=== PATIENT | male | born 1960 | race Caucasian/White ===

== ENCOUNTER 2021-09-09 06:08 | Day surgery (SDC) | payer BC ==
[2021-09-08 09:02] VITALS: BMI 33.0
[2021-09-09] MEDS: LACTATED RINGERS 1,000 ML IV SCH (06:50)
[2021-09-09 06:53] LABS: Glucose,Whole Blood 164 mg/dL (75-99)
[2021-09-09] MEDS ORDERED: PROPOFOL 10 MG/ML 20 ML VIAL IV ONE (08:04)
[2021-09-09 08:17] VITALS: BP 149/89; PULSE 54; RESP 16; TEMP 97.3
--- NOTE | 2021-09-09 08:38 | P.PCN ---
Date of Procedure: 09/09/21 Procedure(s) Performed: BRIEF HISTORY: Patient is a 60-year-old pleasant white male scheduled for an elective colonoscopy as a part of follow-up of large rectal polyp noted on a colonoscopy a month ago. Biopsies revealed adenoma. PROCEDURE PERFORMED: Sigmoidoscopy with snare polypectomy and argon plasma coagulation PREOPERATIVE DIAGNOSIS: Follow-up large rectal polyps noted on recent. IV sedation per Anesthesia. PROCEDURE: After informed consent was obtained, the patient, was brought into the endoscopy unit. IV sedation was administered by Anesthesia under continuous monitoring. Digital rectal examination was normal. Initially the Olympus CF-160 flexible video colonoscope was then inserted in the rectum, gradually advanced into the sigmoid colon. Prep was fair. Mucosa of the sigmoid colon appeared normal. In the mid rectum there was a 1.5 cm sessile flat polyp that was partially removed by snare polypectomy followed by hot biopsy and argon plasma coagulation. In the distal rectum, just proximal to the dentate line there were 2 polyps adjacent to each other. They measured 5 mm and 1 cm in size both of which were removed by snare polypectomy and complete polypectomy accomplished.. Retroflexion was performed in the rectum and no lesions were seen. The patient tolerated the procedure well. IMPRESSION: 1.5 cmi flat polyp in the mid rectum status post piecemeal snare polypectomy followed by hot biopsy and argon plasma coagulation 1 cm residual distal rectal polyp just proximal to the dentate line status post snare polypectomy 5 mm distal rectal polyp status post polypectomy RECOMMENDATIONS: Findings of this examination were discussed with the patientas well as his family. He was advised to follow with the biopsy results. Reason the biopsy results will plan a repeat flexible sigmoidoscope in 6 months].
== END 2021-09-09 09:25 | disposition home or self-care (01) ==
LOC: ORWHC2ENDO 06:08
PROVIDERS: ATTEND Internal Medicine Gastroenterology
DX: Z12.11 Encounter for screening for malignant neoplasm of colon (principal); D12.8 Benign neoplasm of rectum; G47.33 Obstructive sleep apnea (adult) (pediatric); E11.9 Type 2 diabetes mellitus without complications; E66.9 Obesity, unspecified; Z68.32 Body mass index [BMI] 32.0-32.9, adult
CPT/HCPCS: 88305; 45338; J2704; 45331; 45334

== ENCOUNTER 2022-03-24 10:02 | Day surgery (SDC) | payer BC ==
[2022-03-22 17:23] VITALS: BMI 30.9
[~2022-03-24 10:02] MED LIST: LACTATED RINGERS 1,000 ML IV SCH
[2022-03-24 10:48] VITALS: TEMP 97.7
[2022-03-24 10:58] LABS: Glucose,Whole Blood 101 mg/dL (75-99)
[2022-03-24] MEDS ORDERED: PROPOFOL 10 MG/ML 20 ML VIAL IV ONE (11:31)
--- NOTE | 2022-03-24 11:52 | P.PCN ---
Date of Procedure: 03/24/22 Procedure(s) Performed: BRIEF HISTORY: Patient is a 61-year-old pleasant white male scheduled for an elective colonoscopy as a part of follow-up of large rectal polyps with high- grade dysplasia noted on a colonoscopy in August 2021. PROCEDURE PERFORMED: Flexible sigmoidoscopy with snare polypectomy. PREOPERATIVE DIAGNOSIS: Follow-up rectal polyps with high-grade dysplasia. IV sedation per Anesthesia. PROCEDURE: After informed consent was obtained, the patient, was brought into the endoscopy unit. IV sedation was administered by Anesthesia under continuous monitoring. Digital rectal examination was normal. Initially the Olympus CF-160 flexible video colonoscope was then inserted in the rectum, gradually advanced into the splenic flexure. Careful examination was performed. Prep was excellent. Mucosa of the colon descending colon and sigmoid; appeared normal. In the distal rectum just proximal to the dentate line there was a 1 cm and 5 mm sessile polyps removed by snare polypectomy. There was no residual polyp noted in the mid rectum. Retroflexed was performed in the rectum and no lesions were noted. Patient tolerated the procedure well. Impression: 1 cm flat and 5 mm sessile descending colon and sigmoid colon appeared normal. No residual polyp noted in the mid rectal polyp Recommendations: Findings of this examination were discussed with the patient .as well as his family. He was advised to follow with the biopsy results. He was advised to have a repeat colonoscopy in 3 years.
[2022-03-24 11:55] VITALS: RESP 16
[2022-03-24 12:15] VITALS: BP 108/44; PULSE 68
== END 2022-03-24 12:29 | disposition home or self-care (01) ==
LOC: ORWHC2ENDO 10:02
PROVIDERS: ATTEND Internal Medicine Gastroenterology
DX: Z12.11 Encounter for screening for malignant neoplasm of colon (principal); D12.8 Benign neoplasm of rectum; Z86.010 Personal history of colon polyps; I10 Essential (primary) hypertension; E78.5 Hyperlipidemia, unspecified; G47.33 Obstructive sleep apnea (adult) (pediatric); E11.9 Type 2 diabetes mellitus without complications; Z79.84 Long term (current) use of oral hypoglycemic drugs; Z79.899 Other long term (current) drug therapy; Z90.89 Acquired absence of other organs; Z98.890 Other specified postprocedural states
CPT/HCPCS: 88305; 45338; J2704

== ENCOUNTER 2023-02-12 09:37 | Emergency (ER) | payer BC ==
[2023-02-12 09:49] VITALS: TEMP 98.2
--- NOTE | 2023-02-12 09:58 | ED ---
General Adult HPI - General Chief complaint: Arrhythmia/Palpitations Stated complaint: AFIB Time Seen by Provider: 02/12/23 09:50 Source: patient, RN notes reviewed Mode of arrival: ambulatory Limitations: no limitations - History of Present Illness Initial comments: Patient is a pleasant 62-year-old male presenting to the emergency department with concern for new onset A. fib. Patient was at orthopedics preparing for shoulder surgery. Patient was placed on a monitor and found to be irregular. Patient was warned he could have atrial fibrillation and advised come to the emergency department. Patient has symptom-free and has no complaints. No chest pain. No palpitations. No dyspnea. No history of similar problems previously. - Related Data Home Medications Medication Instructions Recorded Confirmed Fenofibrate,Micronized 134 mg PO HS 09/08/21 02/12/23 [Fenofibrate] lisinopriL [Prinivil] 10 mg PO DAILY 09/08/21 02/12/23 metFORMIN HCL [Glucophage] 1,000 mg PO BID 09/08/21 02/12/23 Semaglutide [Ozempic] 1 mg SQ BENAVIDES 03/22/22 02/12/23 Previous Rx's Medication Instructions Recorded Apixaban [Eliquis] 5 mg PO BID #60 tab 02/12/23 Allergies Allergy/AdvReac Type Severity Reaction Status Date / Time No Known Allergies Allergy Verified 02/12/23 10:58 Review of Systems ROS Statement: Those systems with pertinent positive or pertinent negative responses have been documented in the HPI. ROS Other: All systems not noted in ROS Statement are negative. Constitutional: Denies: fever Eyes: Denies: eye pain ENT: Denies: ear pain Respiratory: Denies: cough, dyspnea Cardiovascular: Denies: chest pain, palpitations Endocrine: Denies: fatigue Gastrointestinal: Denies: abdominal pain Musculoskeletal: Denies: back pain Past Medical History Past Medical History: Cancer, Diabetes Mellitus, Hyperlipidemia, Hypertension, Sleep Apnea/CPAP/BIPAP Additional Past Medical History / Comment(s): HX BASAL CELL SKIN CANCER, uses CPAP, colon polyps, hx. flat colon polyp History of Any Multi-Drug Resistant Organisms: None Reported Past Surgical History: Adenoidectomy, Hernia Repair, Tonsillectomy Additional Past Surgical History / Comment(s): LT SHOULDER BICEP TENDON REPAIR. COLONOSCOPY, sigmoidoscopy in . LIPOMAS REMOVED FROM NECK AND TORSO Past Anesthesia/Blood Transfusion Reactions: No Reported Reaction Past Psychological History: No Psychological Hx Reported Smoking Status: Never smoker Past Alcohol Use History: Occasional Past Drug Use History: None Reported - Past Family History Mother Family Medical History: No Reported History General Exam Limitations: no limitations General appearance: alert, in no apparent distress Head exam: Present: normocephalic Eye exam: Present: normal appearance Neck exam: Present: normal inspection Respiratory exam: Present: normal lung sounds bilaterally Cardiovascular Exam: Present: irregular rhythm, normal heart sounds Expanded Peripheral pulses: 2+: Radial (R), Radial (L) GI/Abdominal exam: Present: soft. Absent: tenderness Extremities exam: Present: normal inspection. Absent: pedal edema, calf tenderness Neurological exam: Present: alert Psychiatric exam: Present: normal affect, normal mood Skin exam: Present: normal color Course Vital Signs 02/12/23 02/12/23 02/12/23 09:47 11:00 12:06 Temperature 98.2 F Pulse Rate 85 83 84 Respiratory 18 20 18 Rate Blood Pressure 130/89 119/99 119/99 O2 Sat by Pulse 99 97 98 Oximetry EKG Findings - EKG Results: EKG: interpreted by MAKENZIED (Left axis. Normal QRS. No acute ST change.) EKG shows: atrial fibrillation Medical Decision Making - Medical Decision Making Was pt. sent in by a medical professional or institution ([facility], MESSENGER OFF[facility], urgent care, hospital, or alf...) When possible be specific @ -Patient was sent in by surgery Center Did you speak to anyone other than the patient for history (EMS, parent, family, police, friend...)? What history was obtained from this source @ -No Did you review nursing and triage notes (agree or disagree)? Why? @ -I reviewed and agree with nursing and triage notes Were old charts reviewed (outside hosp., previous admission, EMS record, old EKG, old radiological studies, urgent care reports/EKG's, alf records)? Report findings @ -No old charts were reviewed Differential Diagnosis (chest pain, altered mental status, abdominal pain women, abdominal pain men, vaginal bleeding, weakness, fever, dyspnea, syncope, headache, dizziness, GI bleed, back pain, seizure, CVA, palpatations, mental health)? @ -not applicable EKG interpreted by me (3pts min.). @ -As above X-rays interpreted by me (1pt min.). @ -Chest x-ray shows no acute process CT interpreted by me (1pt min.). @ -None done U/S interpreted by me (1pt. min.). @ -None done What testing was considered but not performed or refused? (CT, X-rays, U/S, labs)? Why? @ -None What meds were considered but not given or refused? Why? @ -None Did you discuss the management of the patient with other professionals (kyle donahue i.e. , PA, MESSENGER OFFICE, lab, RT, psych nurse, social science instructor, supervisor rod placing, teacher, emergency communications officer, rehabilitation case coordinator)? Give summary @ -Case was discussed with Dr. truong who feels patient can be safely discharged with anticoagulant, liquids 5 mg twice a day. Was smoking cessation discussed for >3mins.? @ -No Was critical care preformed (if so, how long)? @ -No Were there social determinants of health that impacted care today? How? (Homelessness, low income, unemployed, alcoholism, drug addiction, transportation, low edu. Level, literacy, decrease access to med. care, senior living, rehab)? @ -No Was there de-escalation of care discussed even if they declined (Discuss DNR or withdrawal of care, Hospice)? DNR status @ -No What co-morbidities impacted this encounter? (DM, HTN, Smoking, COPD, CAD, Cancer, CVA, ARF, Chemo, Hep., AIDS, mental health diagnosis, sleep apnea, morbid obesity)? @ -None Was patient admitted / discharged? Hospital course, mention meds given and route, prescriptions, significant lab abnormalities, going to OR and other pertinent info. @ -Patient reevaluated and updated. Heart rate remains stable. Patient will be discharged with anticoagulant with cardiology and primary care follow-up. Patient is made aware he will need echo. Undiagnosed new problem with uncertain prognosis? @ -No Drug Therapy requiring intensive monitoring for toxicity (Heparin, Nitro, Insulin, Cardizem)? @ -No Were any procedures done? @ -No Diagnosis/symptom? @ -New-onset A. fib Acute, or Chronic, or Acute on Chronic? @ -Acute Uncomplicated (without systemic symptoms) or Complicated (systemic symptoms)? @ -default Side effects of treatment? @ -No Exacerbation, Progression, or Severe Exacerbation? @ -No Poses a threat to life or bodily function? How? (Chest pain, [place], [place], pneumonia, PE, COPD, DKA, ARF, appy, cholecystitis, CVA, Diverticulitis, Homicidal, Suicidal, threat to staff... and all critical care pts) @ -No - Lab Data Result diagrams: 02/12/23 10:05 02/12/23 10:05 Lab Results 02/12/23 02/12/23 02/12/23 Range/Units 10:05 10:05 10:05 WBC 9.2 (3.8-10.6) k/uL RBC 5.16 (4.30-5.90) m/uL Hgb 15.1 (13.0-17.5) gm/dL Hct 43.5 (39.0-53.0) % MCV 84.3 (80.0-100.0) fL MCH 29.2 (25.0-35.0) pg MCHC 34.6 (31.0-37.0) g/dL RDW 12.2 (11.5-15.5) % Plt Count 371 (150-450) k/uL MPV 6.9 Neutrophils % 57 % Lymphocytes % 35 % Monocytes % 4 % Eosinophils % 2 % Basophils % 1 % Neutrophils # 5.3 (1.3-7.7) k/uL Lymphocytes # 3.2 (1.0-4.8) k/uL Monocytes # 0.4 (0-1.0) k/uL Eosinophils # 0.2 (0-0.7) k/uL Basophils # 0.1 (0-0.2) k/uL PT 10.7 (9.0-12.0) sec INR 1.0 (<1.2) APTT 22.3 (22.0-30.0) sec Sodium 138 (137-145) mmol/L Potassium 3.8 (3.5-5.1) mmol/L Chloride 108 H (98-107) mmol/L Carbon Dioxide 23 (22-30) mmol/L Anion Gap 7 mmol/L BUN 19 (9-20) mg/dL Creatinine 0.86 (0.66-1.25) mg/dL Est GFR (CKD-EPI)AfAm >90 (>60 ml/min/1.73 sqM) Est GFR (CKD-EPI)NonAf >90 (>60 ml/min/1.73 sqM) Glucose 127 H (74-99) mg/dL Calcium 9.1 (8.4-10.2) mg/dL Magnesium 1.4 L (1.6-2.3) mg/dL Total Bilirubin 0.7 (0.2-1.3) mg/dL AST 21 (17-59) U/L ALT 21 (4-49) U/L Alkaline Phosphatase 35 L (38-126) U/L Troponin I (0.000-0.034) ng/mL Total Protein 6.1 L (6.3-8.2) g/dL Albumin 4.0 (3.5-5.0) g/dL TSH 1.340 (0.465-4.680) mIU/L Free T4 1.04 (0.78-2.19) ng/dL Free T3 pg/mL 3.7 (2.8-5.3) pg/ml 02/12/23 Range/Units 10:05 WBC (3.8-10.6) k/uL RBC (4.30-5.90) m/uL Hgb (13.0-17.5) gm/dL Hct (39.0-53.0) % MCV (80.0-100.0) fL MCH (25.0-35.0) pg MCHC (31.0-37.0) g/dL RDW (11.5-15.5) % Plt Count (150-450) k/uL MPV Neutrophils % % Lymphocytes % % Monocytes % % Eosinophils % % Basophils % % Neutrophils # (1.3-7.7) k/uL Lymphocytes # (1.0-4.8) k/uL Monocytes # (0-1.0) k/uL Eosinophils # (0-0.7) k/uL Basophils # (0-0.2) k/uL PT (9.0-12.0) sec INR (<1.2) APTT (22.0-30.0) sec Sodium (137-145) mmol/L Potassium (3.5-5.1) mmol/L Chloride (98-107) mmol/L Carbon Dioxide (22-30) mmol/L Anion Gap mmol/L BUN (9-20) mg/dL Creatinine (0.66-1.25) mg/dL Est GFR (CKD-EPI)AfAm (>60 ml/min/1.73 sqM) Est GFR (CKD-EPI)NonAf (>60 ml/min/1.73 sqM) Glucose (74-99) mg/dL Calcium (8.4-10.2) mg/dL Magnesium (1.6-2.3) mg/dL Total Bilirubin (0.2-1.3) mg/dL AST (17-59) U/L ALT (4-49) U/L Alkaline Phosphatase (38-126) U/L Troponin I <0.012 (0.000-0.034) ng/mL Total Protein (6.3-8.2) g/dL Albumin (3.5-5.0) g/dL TSH (0.465-4.680) mIU/L Free T4 (0.78-2.19) ng/dL Free T3 pg/mL (2.8-5.3) pg/ml Disposition Clinical Impression: New onset atrial fibrillation Disposition: HOME SELF-CARE Condition: Stable Instructions (If sedation given, give patient instructions): A-fib (Atrial Fibrillation) (ED) Additional Instructions: Please do follow-up with your primary care physician in the next couple days for recheck. You will need echo done. Please also follow-up with cardiology, number provided. Prescription has been sent to pharmacy. Prescriptions: Apixaban [Eliquis] 5 mg PO BID #60 tab Is patient prescribed a controlled substance at d/c from ED?: No Referrals: Patricia Nguyen NPC [REFERRING] - 1-2 days Bree Cole MD [STAFF PHYSICIAN] - 1-2 days Time of Disposition: 13:20
[2023-02-12 10:24] LABS: Basophils # (A) 0.1 k/uL (0-0.2); Basophils % (A) 1 %; Eosinophils # (A) 0.2 k/uL (0-0.7); Eosinophils % (A) 2 %; HCT 43.5 % (39.0-53.0); HGB 15.1 gm/dL (13.0-17.5); Lymphocytes # (A) 3.2 k/uL (1.0-4.8); Lymphocytes % (A) 35 %; MCH 29.2 pg (25.0-35.0); MCHC 34.6 g/dL (31.0-37.0); MCV 84.3 fL (80.0-100.0); Mean Platelet Volume 6.9; Monocytes # (A) 0.4 k/uL (0-1.0); Monocytes % (A) 4 %; Neutrophils # (A) 5.3 k/uL (1.3-7.7); Neutrophils % (A) 57 %; Platelet Count 371 k/uL (150-450); RBC 5.16 m/uL (4.30-5.90); RDW 12.2 % (11.5-15.5); WBC 9.2 k/uL (3.8-10.6)
--- NOTE | 2023-02-12 10:37 | XR ---
EXAMINATION TYPE: XR chest 2V DATE OF EXAM: 02/12/2023 COMPARISON: NONE HISTORY: Dysrhythmia. TECHNIQUE: Frontal and lateral views of the chest are obtained. FINDINGS: There is no focal air space opacity, pleural effusion, or pneumothorax seen. The cardiac silhouette size is within normal limits. The osseous structures are intact. Overlying EKG leads are present. IMPRESSION: No acute cardiopulmonary process.
[2023-02-12 10:39] LABS: Partial Thromboplastin Time 22.3 sec (22.0-30.0); Prothrombin Time 10.7 sec (9.0-12.0)
[2023-02-12 11:44] VITALS: BP 119/99
[2023-02-12 12:01] LABS: ALT 21 U/L (4-49); AST 21 U/L (17-59); African American GFR (CKD) >90 (>60 ml/min/1.73 sqM); Alkaline Phosphatase 35 U/L (38-126); Anion Gap 7 mmol/L; Blood Urea Nitrogen 19 mg/dL (9-20); Calcium 9.1 mg/dL (8.4-10.2); Carbon Dioxide 23 mmol/L (22-30); Chloride 108 mmol/L (98-107); Glucose 127 mg/dL (74-99); Magnesium 1.4 mg/dL (1.6-2.3); Non-African American GFR(CKD) >90 (>60 ml/min/1.73 sqM); Potassium 3.8 mmol/L (3.5-5.1); Sodium 138 mmol/L (137-145); Total Bilirubin 0.7 mg/dL (0.2-1.3); Total Protein 6.1 g/dL (6.3-8.2)
[2023-02-12 12:14] LABS: T4, Free (Free Thyroxine) 1.04 ng/dL (0.78-2.19)
[2023-02-12] MEDS ORDERED: MAGNESIUM OXIDE 400 MG TAB PO STA (12:33)
[2023-02-12] MEDS ORDERED: APIXABAN 5 MG TAB PO STA (13:16)
[2023-02-12 13:34] VITALS: PULSE 83; RESP 17
== END 2023-02-12 13:42 | disposition home or self-care (01) ==
LOC: EC 09:37
DX: I48.91 Unspecified atrial fibrillation (principal); E11.9 Type 2 diabetes mellitus without complications; I10 Essential (primary) hypertension; G47.30 Sleep apnea, unspecified; Z79.84 Long term (current) use of oral hypoglycemic drugs; Z79.899 Other long term (current) drug therapy
CPT/HCPCS: 36415; 71046; 80053; 83735; 84439; 84443; 84481; 84484; 85025; 85610; 85730; 93005; 99285

== ENCOUNTER 2025-05-06 06:02 | Day surgery (SDC) | payer BC ==
[2025-05-05 11:18] VITALS: BMI 30.9
[2025-05-06] MEDS: IV FLUID CONTINUATION 1,000 ML IV ONE (06:44)
[2025-05-06] MEDS ORDERED: LIDOCAINE 1% (10MG/ML) FOR IV START INTRADERMA PRN (06:45)
[2025-05-06] MEDS: LACTATED RINGERS 1,000 ML IV SCH (07:00)
[2025-05-06 07:05] VITALS: TEMP 98
[2025-05-06 07:07] LABS: Glucose,Whole Blood 136 mg/dL (70-110)
[2025-05-06] MEDS ORDERED: PROPOFOL 10 MG/ML 20 ML VIAL IV ONE (07:47)
--- NOTE | 2025-05-06 08:09 | P.PCN ---
Date of Procedure: 05/06/25 Procedure(s) Performed: BRIEF HISTORY: Patient is a 62-year-old pleasant white male scheduled for an elective colonoscopy as a part of screening for history of colon polyps. Last colonoscopy was 3 years ago and was noted to have large colon polyps. Biopsy revealed adenoma. PROCEDURE PERFORMED: Colonoscopy with snare polypectomy and cold biopsy.. PREOPERATIVE DIAGNOSIS: History of colon polyps. IV sedation per Anesthesia. PROCEDURE: After informed consent was obtained, the patient, was brought into the endoscopy unit. IV sedation was administered by Anesthesia under continuous monitoring. Digital rectal examination was normal. Initially the Olympus CF-160 flexible video colonoscope was then inserted in the rectum, gradually advanced into the cecum without any difficulty. Careful examination was performed as the scope was gradually being withdrawn. Ileocecal valve and the appendiceal orifice were visualized and appeared normal. Prep was excellent. Mucosa of the cecum, had a 3 mm polyp that was removed by cold biopsy. Rest of the ascending colon, transverse colon, descending colon, appeared normal. In the sigmoid colon there was a 6 mm polyp removed by cold snare polypectomy. In the proximal rectum there were 2 polyps measuring 4 mm in size removed by cold snare polypectomy. Scattered sigmoid diverticulosis seen. Rest of the sigmoid colon, and rectum appeared normal. Retroflexion was performed in the rectum and no lesions were seen. The patient tolerated the procedure well. IMPRESSION: 3 mm cecal polyp status post cold biopsy 6 mm sigmoid colon polyp status post cold snare polypectomy 4 mm x 2 proximal rectal polyp status post cold snare polypectomy Scattered sigmoid diverticulosis RECOMMENDATIONS: Findings of this examination were discussed with the patient as well as his family. He was advised to follow-up with the biopsy results. If the biopsy reveals adenoma he can have repeat colonoscopy in 3 years..
[2025-05-06 08:43] VITALS: BP 121/98; PULSE 70; RESP 20
== END 2025-05-06 08:54 ==
LOC: ORWHC2ENDO 06:02
PROVIDERS: ATTEND Internal Medicine Gastroenterology
DX: Z12.11 Encounter for screening for malignant neoplasm of colon (principal); D12.0 Benign neoplasm of cecum; D12.5 Benign neoplasm of sigmoid colon; D12.8 Benign neoplasm of rectum; K57.30 Diverticulosis of large intestine without perforation or abscess without bleeding; I10 Essential (primary) hypertension; E78.5 Hyperlipidemia, unspecified; E11.9 Type 2 diabetes mellitus without complications; G47.33 Obstructive sleep apnea (adult) (pediatric); I48.91 Unspecified atrial fibrillation; Z99.89 Dependence on other enabling machines and devices; Z86.0100 Personal history of colon polyps, unspecified; Z79.01 Long term (current) use of anticoagulants; Z79.899 Other long term (current) drug therapy; Z88.8 Allergy status to other drugs, medicaments and biological substances; Z79.84 Long term (current) use of oral hypoglycemic drugs
CPT/HCPCS: 88305; 45380; 45385; J2704